=== PATIENT | female | born 1965 | race African-American/Black ===

== ENCOUNTER → 2017-05-09 | Outpatient (CLI) | payer BC ==
--- NOTE | ~2017-05-09 | MY29 ---
[facility] A Service of [facility] & [facility] RADIOLOGY TEXT RESULTS PATIENT: REMI SPENCER LOCATION: [facility] : 63 UNIT #: [id number] AGE: [address]: Jenaro Shoemaker Jr EXECUTIVE TEAM LEADER SEX: F ORDER DR: [id number] [facility] [address] [place], [place] [address] [id number] O MR#: [id number] Acc #: [id number] NAME: REMI SPENCER : 1965 SEX: F STUDY DATE/TIME: 05/09/2017 12:59 UNIT: [facility] ROOM: STUDY DESCRIPTION: MY NBA SCREENING W/ CAD BILAT Attending Physician: Jenaro Shoemaker Jr., ArthurPTaraRBlossom Referring Physician: Jenaro Shoemaker Jr., A.P.R.N. Ordering Physician: Arthur Burch Jr.P.RBlossom Primary Care Physician: Arthur Burch Jr.PTaraRBlossom MEDICAL IMAGING REPORT This report is preliminary unless electronic signature is present EXAM Digital screening mammogram 05/09/2017 HISTORY 52-year-old woman no risk elevation. Annual screen. COMPARISON Diagnostic mammogram 09/19/2014 with right breast ultrasound demonstrating a macro cyst outer hemisphere right breast posterior third. FINDINGS Digital imaging of each breast was completed utilizing screening protocol. Review includes FDA-approved CAD device. Breast parenchyma is moderately dense with fibroglandular opacities noted bilaterally. Previously present macro cyst upper hemisphere right breast is no longer present. I see no dominant mass or suspicious mass characteristics. There are no microcalcifications and no architectural deformity. IMPRESSION Negative mammogram. Annual screening recommended. Patients over the age of 40 are entered into a reminder system with target due date for the next mammogram. A result letter will also be sent to the patient. BIRADS: 1, negative. Dictated by... Marek Perea M.D. THIS IS AN ELECTRONICALLY VERIFIED REPORT Marek Perea M.D. at 05/09/2017 3:27 PM [facility] A Service of [facility] & [facility] RADIOLOGY TEXT RESULTS PATIENT: REMI SPENCER LOCATION: [facility] : 63 UNIT #: [id number] AGE: [address]: Jenaro Shoemaker Jr EXECUTIVE TEAM LEADER SEX: F ORDER DR: MITCHEL/daly TD: 05/09/2017 14:55 JOB #: [id number] MEDICAL IMAGING REPORT Page 1 of 1 COPY
== END | disposition home or self-care (01) ==
LOC: CWCC 12:17
DX: Z12.31 Encounter for screening mammogram for malignant neoplasm of breast (principal)
CPT/HCPCS: G0202